=== PATIENT | male | born 1985 | race African-American/Black ===

== ENCOUNTER 2017-04-06 08:36 | Outpatient (CLI) | payer OTHER ==
[2017-04-06 12:30] LABS: #Basophils 0.1 thou/uL (0.0-0.2); #Eosinphils 0.1 thou/uL (0.0-0.7); #Monocytes 0.4 thou/uL (0.11-0.59); #Neutrophils 2.5 thou/uL (1.40-6.50); %Basophils 1.2 % (0.0-1.0); %Eosinophils 1.2 % (0.0-10.0); %Lymphocytes 49.8 % (21.0-51.0); %Monocytes 6.6 % (0.0-10.0); %Neutrophils 41.2 % (42.0-75.0); Hemoglobin 14.8 g/dL (14.0-18.0); Mean Corpuscular HGB CONC 31.7 g/dL (32.0-36.0); Mean Corpuscular Hemoglobin 28.3 pg (27.0-31.0); Mean Corpuscular Volume 89.1 fl (80.0-94.0); Mean Platelet Volume 9.5 fL (7.4-10.4); Platelet Count 188 thou/uL (130-400); RBC Distribution Width 11.7 % (11.5-14.5); Red Blood Cell (RBC) Count 5.24 mill/uL (4.70-6.10)
[2017-04-06 12:41] LABS: ALT (SGPT) 9 U/L (8-55); AST (SGOT) 17 U/L (5-34); Albumin 4.6 g/dL (3.5-5.0); Alkaline Phosphatase 110 U/L (40-150); Anion Gap 20 mmol/L (10-20); BUN (Urea Nitrogen) 15 mg/dL (8.9-20.6); Bilirubin, Direct 0.1 mg/dL (0.1-0.3); Bilirubin, Total 0.4 mg/dL (0.2-1.2); Calc. Creatinine Clearance 0 mL/min (70-130); Calcium 9.7 mg/dL (7.8-10.44); Carbon Dioxide 23 mmol/L (22-29); Cardiac Risk 3.4 (Less than 4.5); Chloride 102 mmol/L (98-107); Cholesterol 189 mg/dl (< 200 Desired); Estimated GFR-MDRD Greater than 90; Glucose 91 mg/dL (70-105); HDL Cholesterol 55 mg/dL (>60 Neg Risk); LDL Cholesterol, Calculated 124 mg/dL; Potassium 4.4 mmol/L (3.5-5.1); Protein, Total 8.3 g/dL (6.0-8.3); Sodium 141 mmol/L (136-145); Triglycerides 51 mg/dL (Less than 150)
== END 2017-04-06 08:37 | disposition home or self-care (01) ==
LOC: NAVSJIPCSP 08:36
DX: M62.81 Muscle weakness (generalized) (principal); G80.9 Cerebral palsy, unspecified; K31.84 Gastroparesis; Z79.899 Other long term (current) drug therapy
CPT/HCPCS: 36415; 80048; 80061; 80076; 83036; 84443; 85025

== ENCOUNTER 2018-02-21 19:59 | Emergency (ER) | payer OTHER ==
[2018-02-21] MEDS ORDERED: Penicillin V Potassium 250 MG TAB ONE (20:26)
== END 2018-02-21 20:37 | disposition home or self-care (01) ==
LOC: NAV ERS 19:59
DX: K04.7 Periapical abscess without sinus (principal); L03.211 Cellulitis of face; Z79.899 Other long term (current) drug therapy
CPT/HCPCS: 99283

== ENCOUNTER 2018-09-07 08:02 | Emergency (ER) | payer OTHER ==
[2018-09-07] MEDS ORDERED: Lidocaine 4% Cream 5 GM TUBE w/ Tegaderm ONE (08:41)
[2018-09-07] MEDS ORDERED: Triple Antibiotic Oint 1 GM Packet ONE ×2 (09:33→09:48)
== END 2018-09-07 10:01 | disposition home or self-care (01) ==
LOC: NAV ERS 08:02
DX: M27.2 Inflammatory conditions of jaws (principal); G80.9 Cerebral palsy, unspecified; Z79.1 Long term (current) use of non-steroidal anti-inflammatories (NSAID); Z79.899 Other long term (current) drug therapy; Z79.51 Long term (current) use of inhaled steroids
CPT/HCPCS: 10060